=== PATIENT | male | born 1965 | race Caucasian/White ===

== ENCOUNTER → 2019-09-08 | Day surgery (SDC) | payer BC ==
[~2019-09-08] MED LIST: LACTATED RINGERS 1,000 ML IV ONE; LACTATED RINGERS 1,000 ML IV SCH; LIDOCAINE 1% (10MG/ML) FOR IV START INTRADERMA PRN; PROPOFOL 10 MG/ML 20 ML VIAL IV ONE
[2019-09-08 10:54] LABS: Glucose,Whole Blood 106 mg/dL (75-99)
[2019-09-08 10:59] VITALS: RESP 18; TEMP 97.8
--- NOTE | 2019-09-08 11:29 | P.PCN ---
Date of Procedure: 09/08/19 Description of Procedure: BRIEF HISTORY: Patient is a 53-year-old male presenting for outpatient colonoscopy for screening for malignant neoplasm of the colon. Patient reports last colonoscopy at the age of 45 and normal per his recollection. No change in bowel habits or blood per rectum. No family history of colon cancer. PROCEDURE PERFORMED: Colonoscopy. PREOPERATIVE DIAGNOSIS: Screening for malignant neoplasm colon, last colonoscopy at the age of 45. ESTIMATED BLOOD LOSS: Minimal. IV sedation per Anesthesia. PROCEDURE: After informed consent was obtained, the patient, was brought into the endoscopy unit. IV sedation was administered by Anesthesia under continuous monitoring. Digital rectal examination was normal. Initially the Olympus CF-190 flexible video colonoscope was then inserted in the rectum, gradually advanced into the cecum without any difficulty. Careful examination was performed as the scope was gradually being withdrawn. Ileocecal valve and the appendiceal orifice were visualized and appeared normal. Prep was excellent. Mucosa of the cecum, ascending colon, transverse colon, descending colon, sigmoid colon, and rectum appeared normal. Retroflexion was performed in the rectum and no lesions were seen, low-grade internal hemorrhoids. The patient tolerated the procedure well. IMPRESSION: Normal-appearing colon from rectum to cecum. RECOMMENDATIONS: Findings of this examination were discussed with the patient and his mother. O tom to resume diet. Okay to resume medications. Would recommend repeat colonoscopy in 10 years for screening for malignant neoplasm of the colon or sooner if any signs or symptoms which warrant further evaluation develope.
[2019-09-08 11:44] LABS: Glucose,Whole Blood 120 mg/dL (75-99)
[2019-09-08 11:48] VITALS: BP 110/78; PULSE 80
== END ==
LOC: ORWHC2ENDO 10:19
PROVIDERS: ATTEND Internal Medicine
DX: Z12.11 Encounter for screening for malignant neoplasm of colon (principal); K64.8 Other hemorrhoids; E11.9 Type 2 diabetes mellitus without complications; K21.9 Gastro-esophageal reflux disease without esophagitis; F41.9 Anxiety disorder, unspecified; F31.9 Bipolar disorder, unspecified; F41.0 Panic disorder [episodic paroxysmal anxiety]; Z87.891 Personal history of nicotine dependence; Z79.4 Long term (current) use of insulin; Z79.899 Other long term (current) drug therapy; Z79.82 Long term (current) use of aspirin; Z98.890 Other specified postprocedural states
CPT/HCPCS: J2704; G0121; 45378

== ENCOUNTER → 2020-06-07 | Outpatient (CLI) | payer BC ==
--- NOTE | 2020-06-07 11:54 | FL ---
EXAMINATION TYPE: FL barium swallow w video DATE OF EXAM: 06/07/2020 MODIFIED SWALLOW / DEGLUTITION STUDY CLINICAL HISTORY: Dysphagia. TECHNIQUE: Deglutition study is performed utilizing thin liquid barium, honey and nectar thick liqui d barium, barium thick pudding, and barium coated cracker. 1 minute 19 seconds of fluoro time and 0 images obtained. COMPARISON: None. FINDINGS: The oral and pharyngeal phases show satisfactory initiation and propagation with all modali ties tested. Satisfactory mastication is seen with solid modalities tested. There is no evidence of penetration or aspiration with any modality tested. No significant pharyngeal residue was appreciate d. IMPRESSION: Normal deglutition study. Please refer to speech therapist notes for further details if necessary.
== END | disposition home or self-care (01) ==
LOC: RADFLMAIN 11:16
PROVIDERS: ATTEND Otolaryngology
DX: R13.10 Dysphagia, unspecified (principal)
CPT/HCPCS: 74230